=== PATIENT | female | born 1965 | race Caucasian/White ===

== ENCOUNTER 2024-02-07 09:12 | Day surgery (SDC) | payer OTHER ==
[~2024-02-07] VITALS: Ht 157.5 cm; Wt 68.0 kg
[2024-02-07] MEDS ORDERED: fentaNYL citrate 0.05 MG/ML VIAL ONE (11:41)
[2024-02-07] MEDS ORDERED: LIDOCAINE 2% 100 MG/5 ML UJET TP ONE (11:41)
[2024-02-07] MEDS: fentaNYL citrate 0.05 MG/ML VIAL IVP ONE (12:20)
== END 2024-02-07 13:35 | disposition home or self-care (01) ==
LOC: MDS 09:12 → MMU 10:15 → MDS 13:35
PROVIDERS: ATTEND Internal Medicine Gastroenterology
DX: Z12.11 Encounter for screening for malignant neoplasm of colon (principal); K57.30 Diverticulosis of large intestine without perforation or abscess without bleeding; I10 Essential (primary) hypertension; E78.00 Pure hypercholesterolemia, unspecified; E11.9 Type 2 diabetes mellitus without complications; F32.A Depression, unspecified; Z86.010 Personal history of colon polyps; Z90.710 Acquired absence of both cervix and uterus; Z79.82 Long term (current) use of aspirin; Z79.899 Other long term (current) drug therapy; Z98.890 Other specified postprocedural states
CPT/HCPCS: 45378; 82948; J3010